=== PATIENT | female | born 1945 | race Caucasian/White ===

== ENCOUNTER → 2016-07-15 | Day surgery (SDC) | payer MEDICARE ==
[~2016-07-15] MED LIST: ALBU17I INH; ALIG4CAP PO; AMLO5TAB22 PO; ASPI81TA82 PO; ATOR20TA42 PO; COEN400C2 PO; D3400TAB PO; FLON0.053; FORM12I INH; LACTATED RINGER'S 1,000 ML BAG IV ONE; LORTA5 PO; LOSA50TA PO; ONDA1TAB16 PO; PROPOFOL 100 MG/10 ML INJ IV ONE; PROT40TA PO; XANA1TAB6 PO
== END | disposition home or self-care (01) ==
LOC: ESDC 12:25
PROVIDERS: ATTEND Internal Medicine Gastroenterology
DX: Z12.11 Encounter for screening for malignant neoplasm of colon (principal); Z86.010 Personal history of colon polyps; D12.3 Benign neoplasm of transverse colon; D12.2 Benign neoplasm of ascending colon; K64.8 Other hemorrhoids
CPT/HCPCS: 00810; 45385; 88305; J7120

== ENCOUNTER 2017-05-19 19:06 | Emergency (ER) | payer MEDICARE ==
[~2017-05-19] VITALS: Ht 154.9 cm; Wt 66.5 kg
[~2017-05-19 19:06] MED LIST changes: -LACTATED RINGER'S 1,000 ML BAG IV ONE; -PROPOFOL 100 MG/10 ML INJ IV ONE
[2017-05-19 19:10] VITALS: BP 156/115; PULSE 83; RESP 16; TEMP 98.3; O2SAT 94
[2017-05-19 19:28] VITALS: O2SAT 98
[2017-05-19] MEDS ORDERED: SODIUM CHLORIDE 0.9% FLUSH 10 ML FLUSH IVF PRN (19:30)
--- NOTE | 2017-05-19 19:37 | PD ---
HPI Chief Complaint: Syncope/Near-Syncope Time Seen by Provider: 19:19 Travel History International Travel<30 days: No Contact w/Intl Traveler<30days: No Traveled to known affect area: No History of Present Illness HPI Patient is a 72-year-old female who comes in after a near syncopal episode at the dentist's office. She says she had a procedure performed and afterward she felt very lightheaded. The dentist was concerned and called EMS to bring her to the hospital. She says this has happened before after dental procedure, but was worse in the past. She says she has actually lost consciousness in the past , today she only felt lightheaded. Currently she is feeling better, she only complains of pain where she had the procedure. She says she was in her normal state of health prior to going in for the procedure. She denies ever having any chest pain or increasing shortness of breath. PFSH Past Medical History Hx Anticoagulant Therapy: Yes (81 MG ASA) Arthritis: Yes Asthma: No Anxiety: Yes Heart Rhythm Problems: No Cancer: Yes (SKIN CANCER ON FACE, REMOVED) Cardiac Catheterization: No Cardiovascular Problems: Yes High Cholesterol: Yes (takes med) Chemotherapy: No Chest Pain: No Congestive Heart Failure: Yes COPD: Yes Cerebrovascular Accident: Yes (TIA) Diabetes: No Diminished Hearing: No Endocrine: No Gastrointestinal Disorders: Yes GERD: Yes Genitourinary: No Hiatal Hernia: Yes (HAS HERNIA, FORGETS WHERE IT WAS) Hypertension: Yes Immune Disorder: No Musculoskeletal: Yes Neurologic: No Psychiatric: No Reproductive: No Respiratory: Yes Immunizations Current: No Radiation Therapy: No Sleep Apnea: No Ulcer: No ?: Not Menopausal: Yes Tubal Ligation: Yes Past Surgical History Abdominal Surgery: No Cardiac Surgery: No Coronary Artery Bypass Graft: No Ear Surgery: No Endocrine Surgery: No Eye Surgery: Yes (VERY YOUNG AGE, CLOSED ANGLE GLAUCOMA LASER SX) Genitourinary Surgery: No Gynecologic Surgery: Yes (TUBAL LIGATION) Oral Surgery: Yes (GUMS ) Thoracic Surgery: No Other Surgery: Yes (breast and neck biposy) Social History Alcohol Use: Yes (SOME TIMES) Tobacco Use: No (states she quit in september) Substance Use: No Allergies-Medications (Allergen,Severity, Reaction): Coded Allergies: Sulfa (Sulfonamide Antibiotics) (Unverified Allergy, Severe, 05/19/17) cefuroxime (Unverified Allergy, Severe, UNKNOWN, DOES NOT REMEMBER, 05/19/17 ) gatifloxacin (Unverified Allergy, Severe, HIVES, 05/19/17) moxifloxacin (Unverified Allergy, Severe, RASH, 05/19/17) penicillin G (Unverified Allergy, Severe, PURPLE RASH ON NECK, 05/19/17) Reported Meds & Prescriptions Reported Meds & Active Scripts Active Review of Systems Except as stated in HPI: all other systems reviewed are Neg General / Constitutional: No: Fever, Chills Eyes: No: Blurred Vision HENT: Positive: Lightheadedness, No: Headaches Cardiovascular: No: Chest Pain or Discomfort, Palpitations Respiratory: No: Shortness of Breath Gastrointestinal: No: Nausea, Vomiting Musculoskeletal: No: Myalgias, Arthralgias Skin: No Rash, No Change in Pigmentation Neurologic: No: Weakness, Dizziness, Syncope Physical Exam Narrative GENERAL: Awake and alert, no acute distress. SKIN: Focused skin assessment warm/dry. No signs of infection. HEAD: Atraumatic. Normocephalic. EYES: Pupils equal and round. No scleral icterus. Extraocular movements intact. ENT: Swelling to the right side of the face, status post dental procedure. Mucous membranes pink and moist. NECK: Trachea midline. No JVD. CARDIOVASCULAR: Regular rate and rhythm. No murmur appreciated. RESPIRATORY: No accessory muscle use. Clear to auscultation. Breath sounds equal bilaterally. GASTROINTESTINAL: Abdomen soft, non-tender, nondistended. MUSCULOSKELETAL: No obvious deformities. No clubbing. No cyanosis. No edema. NEUROLOGICAL: Awake and alert. No obvious cranial nerve deficits. Motor grossly within normal limits. Normal speech. PSYCHIATRIC: Appropriate mood and affect; insight and judgment normal. Data Data Last Documented VS Vital Signs Date Time Temp Pulse Resp B/P (MAP) Pulse Ox O2 Delivery O2 Flow Rate FiO2 05/19/17 19:54 97.2 75 16 148/77 (100) Room Air 05/19/17 19:28 98 Orders Orders Electrocardiogram (05/19/17 19:25) Complete Blood Count With Diff (05/19/17 19:25) Comprehensive Metabolic Panel (05/19/17 19:25) Troponin I (05/19/17 19:25) Ecg Monitoring (05/19/17 19:25) Iv Access Insert/Monitor (05/19/17 19:25) Oximetry (05/19/17 19:25) Sodium Chloride 0.9% Flush (Ns Flush) (05/19/17 19:30) Labs Laboratory Tests Test 05/19/17 19:48 White Blood Count 14.1 TH/MM3 Red Blood Count 3.73 MIL/MM3 Hemoglobin 11.7 GM/DL Hematocrit 36.3 % Mean Corpuscular Volume 97.1 FL Mean Corpuscular Hemoglobin 31.4 PG Mean Corpuscular Hemoglobin Concent 32.3 % Red Cell Distribution Width 12.1 % Platelet Count 366 TH/MM3 Mean Platelet Volume 7.5 FL CBC Comment AUTO DIFF Differential Total Cells Counted 100 Neutrophils % (Manual) 80 % Band Neutrophils % 4 % Lymphocytes % 8 % Monocytes % 7 % Eosinophils % 1 % Neutrophils # (Manual) 11.8 TH/MM3 Differential Comment FINAL DIFF MANUAL Platelet Estimate NORMAL Platelet Morphology Comment CLUMPED Red Cell Morphology Comment NORMAL Blood Urea Nitrogen 15 MG/DL Creatinine 0.74 MG/DL Random Glucose 114 MG/DL Total Protein 7.3 GM/DL Albumin 3.7 GM/DL Calcium Level 9.0 MG/DL Alkaline Phosphatase 68 U/L Aspartate Amino Transf (AST/SGOT) 35 U/L Alanine Aminotransferase (ALT/SGPT) 30 U/L Total Bilirubin 0.8 MG/DL Sodium Level 131 MEQ/L Potassium Level 3.6 MEQ/L Chloride Level 94 MEQ/L Carbon Dioxide Level 27.6 MEQ/L Anion Gap 9 MEQ/L Estimat Glomerular Filtration Rate 77 ML/MIN Troponin I LESS THAN 0.02 NG/ML MDM Medical Decision Making Medical Screen Exam Complete: Yes Emergency Medical Condition: Yes Medical Record Reviewed: Yes Interpretation(s) ECG shows normal sinus rhythm at 75, no ST elevation or depression, normal intervals. Differential Diagnosis Electrolyte abnormality versus dehydration versus vasovagal reaction Narrative Course Patient is a 72-year-old female who comes in after an episode of near syncope after a dental procedure. She says this has happened before after dental procedure. Currently she is feeling fine other than pain to her mouth where she had the procedure performed. Exam shows no acute abnormalities. IV established, labs sent. Labs show a slight elevation in white blood cell count of 14.1. Sodium is 131. Patient advised of these results. She has a prescription for antibiotics to start taking at home. She says she was not feeling sick prior to this event. She is comfortable going home at this time. She is advised to return any time for any worsening symptoms. Diagnosis Primary Impression: Vasovagal near syncope Patient Instructions: General Instructions, Near Syncope (ED) Additional Instructions: Taking her antibiotic as prescribed. Follow-up with your doctor. Return to the ED as needed for any worsening symptoms. Disposition: 01 DISCHARGE HOME Condition: Stable Ivory Sutton MD May 19, 2017 19:37
[2017-05-19 19:54] VITALS: BP 148/77; PULSE 75; RESP 16; TEMP 97.2
[2017-05-19 20:04] LABS: HEMATOCRIT 36.3 % (35.0-46.0); HEMOGLOBIN 11.7 GM/DL (11.6-15.3); MEAN CELL VOLUME 97.1 FL (80.0-100.0); MEAN CORPUSCULAR HEMOGLOBIN 31.4 PG (27.0-34.0); MEAN CORPUSCULAR HGB CONC 32.3 % (32.0-36.0); MEAN PLATELET VOLUME 7.5 FL (7.0-11.0); PLATELET COUNT 366 TH/MM3 (150-450); RED BLOOD COUNT 3.73 MIL/MM3 (4.00-5.30); RED CELL DISTRIBUTION WIDTH 12.1 % (11.6-17.2); WHITE BLOOD COUNT 14.1 TH/MM3 (4.0-11.0)
[2017-05-19 20:11] LABS: CHLORIDE 94 MEQ/L (98-107); SODIUM (NA) 131 MEQ/L (136-145)
[2017-05-19 20:16] LABS: ALBUMIN 3.7 GM/DL (3.4-5.0); BICARBONATE 27.6 MEQ/L (21.0-32.0); BLOOD UREA NITROGEN 15 MG/DL (7-18); GLUCOSE,RANDOM 114 MG/DL (74-106)
[2017-05-19 20:19] LABS: ALT (GPT) 30 U/L (10-53); AST (GOT) 35 U/L (15-37); CREATININE 0.74 MG/DL (0.50-1.00); GLOMERULAR FILTRATION RATE 77 ML/MIN (>89)
[2017-05-19 20:21] LABS: TOTAL BILIRUBIN ADULT 0.8 MG/DL (0.2-1.0); TOTAL PROTEIN 7.3 GM/DL (6.4-8.2)
[2017-05-19 20:22] LABS: ALKALINE PHOSPHATASE 68 U/L (45-117)
[2017-05-19 20:24] LABS: TROPONIN I LESS THAN 0.02 NG/ML (0.02-0.05)
[2017-05-19 20:31] LABS: BANDS 4 % (0-6); LYMPHOCYTES 8 % (9-44); MONOCYTES 7 % (0-8); NEUTROPHIL # MANUAL DIFF 11.8 TH/MM3 (1.8-7.7); POLYS (SEG NEUTROPHILS) 80 % (16-70)
[2017-05-19 21:03] VITALS: BP 157/78; PULSE 68; RESP 18; TEMP 97.8; O2SAT 97
--- NOTE | 2017-05-20 15:33 | EKG ---
Date Performed: 05/19/2017 Time Performed: 19:35:32 PTAGE: 72 years EKG: Sinus rhythm NORMAL ECG PREVIOUS TRACING : 07/24/2013 13.57 Compared to prior tracing no significant change DOCTOR: Girish Amor Interpretating Date/Time 05/20/2017 15:32:44
== END 2017-05-19 21:18 | disposition home or self-care (01) ==
LOC: PHED 19:06
DX: R55 Syncope and collapse (principal); E78.00 Pure hypercholesterolemia, unspecified; F41.9 Anxiety disorder, unspecified; I11.0 Hypertensive heart disease with heart failure; I50.9 Heart failure, unspecified; J44.9 Chronic obstructive pulmonary disease, unspecified; Z86.73 Personal history of transient ischemic attack (TIA), and cerebral infarction without residual deficits; K21.9 Gastro-esophageal reflux disease without esophagitis; Z87.891 Personal history of nicotine dependence
CPT/HCPCS: 80053; 84484; 85007; 85027; 93005; 99284